=== PATIENT | male | born 1940 | race Asian ===

== ENCOUNTER → 2016-10-26 | Outpatient (CLI) | payer MEDICARE, BC ==
[~2016-10-26] MED LIST: CHOL1CAP14 PO; D-20TAB3 PO; DRIS50002 PO; FLAX10008 PO; ROSU1TAB4 PO; TAMS5CAP PO; ZYRT10TA PO; [UNRECOGNIZED DRUG - CODE] TOPICAL; [UNRECOGNIZED DRUG - OTHER] T-DERMAL; [UNRECOGNIZED DRUG - OTHER] T-DERMAL; [UNRECOGNIZED DRUG - OTHER] TOP
[2016-10-26 10:57] LABS: HEMATOCRIT 43.1 % (39.0-51.0); MEAN CELL VOLUME 87.7 FL (80.0-100.0); MEAN CORPUSCULAR HEMOGLOBIN 29.8 PG (27.0-34.0); PLATELET COUNT 307 TH/MM3 (150-450); RED BLOOD COUNT 4.92 MIL/MM3 (4.50-5.90); RED CELL DISTRIBUTION WIDTH 14.5 % (11.6-17.2); REVIEW FLAG FINAL; WHITE BLOOD COUNT 8.2 TH/MM3 (4.0-11.0)
[2016-10-26 11:03] LABS: INTERNATIONAL NORMALIZED RATIO 0.9 RATIO; PROTHROMBIN TIME - PATIENT 10.4 SEC (9.8-11.6)
[2016-10-26 11:28] LABS: ALKALINE PHOSPHATASE 65 U/L (45-117); ALT (GPT) 19 U/L (12-78); GLUCOSE,FASTING 101 MG/DL (74-99); TOTAL BILIRUBIN ADULT 0.4 MG/DL (0.2-1.0)
[2016-10-26 11:29] LABS: ANION GAP 7 MEQ/L (5-15); AST (GOT) 20 U/L (15-37); BICARBONATE 26.9 MEQ/L (21.0-32.0); BLOOD UREA NITROGEN 11 MG/DL (7-18); CHLORIDE 108 MEQ/L (98-107); GLOMERULAR FILTRATION RATE 88 ML/MIN (>89); POTASSIUM 4.1 MEQ/L (3.5-5.1); SODIUM (NA) 142 MEQ/L (136-145)
[2016-10-29 11:50] LABS: HEP B DNA R2 2.84 (())
== END ==
LOC: CLAB 10:27
PROVIDERS: ATTEND Urology
DX: R97.20 Elevated prostate specific antigen [PSA] (principal); B18.1 Chronic viral hepatitis B without delta-agent
CPT/HCPCS: 36415; 80053; 82105; 84153; 85027; 85610; 87517

== ENCOUNTER → 2017-02-18 | Outpatient (CLI) | payer MEDICARE, BC ==
[~2017-02-18] MED LIST changes: -DRIS50002 PO; +ZOSTINJ SQ; -ZYRT10TA PO; +[UNRECOGNIZED DRUG - CODE] TD
[2017-02-18 12:19] LABS: ANION GAP 6 MEQ/L (5-15); AST (GOT) 21 U/L (15-37); BICARBONATE 26.5 MEQ/L (21.0-32.0); BLOOD UREA NITROGEN 16 MG/DL (7-18); CHLORIDE 106 MEQ/L (98-107); GLOMERULAR FILTRATION RATE 90 ML/MIN (>89); GLUCOSE,FASTING 103 MG/DL (74-99); POTASSIUM 3.8 MEQ/L (3.5-5.1); SODIUM (NA) 138 MEQ/L (136-145)
[2017-02-18 12:20] LABS: ALT (GPT) 28 U/L (12-78)
[2017-02-18 12:22] LABS: ALKALINE PHOSPHATASE 73 U/L (45-117); TOTAL BILIRUBIN ADULT 0.6 MG/DL (0.2-1.0)
[2017-02-21 09:51] LABS: HEP B DNA R2 1.48 (())
== END ==
LOC: CLAB 11:30
PROVIDERS: ATTEND Family Medicine
DX: R76.8 Other specified abnormal immunological findings in serum (principal)
CPT/HCPCS: 36415; 80053; 82105; 87517

== ENCOUNTER → 2017-07-19 | Outpatient (CLI) | payer MEDICARE, BC ==
[~2017-07-19] MED LIST changes: -CHOL1CAP14 PO; +D 50CAP2 PO
[2017-07-19 11:06] LABS: PROTHROMBIN TIME - PATIENT 10.2 SEC (9.8-11.6)
[2017-07-19 11:10] LABS: AUTOMATED NEUTROPHIL # 4.5 TH/MM3 (1.8-7.7); BASOPHIL % 0.4 % (0.0-2.0); EOSINOPHIL # 0.4 TH/MM3 (0-0.4); EOSINOPHIL % 6.5 % (0.0-4.0); HEMO FLAGS DIFF FINAL; LYMPH % 18.6 % (9.0-44.0); LYMPHOCYTE # 1.3 TH/MM3 (1.0-4.8); MEAN CELL VOLUME 87.4 FL (80.0-100.0); MEAN CORPUSCULAR HEMOGLOBIN 29.4 PG (27.0-34.0); MEAN CORPUSCULAR HGB CONC 33.6 % (32.0-36.0); MONO % 8.5 % (0.0-8.0); PLATELET COUNT 268 TH/MM3 (150-450); RED BLOOD COUNT 4.81 MIL/MM3 (4.50-5.90); WHITE BLOOD COUNT 6.9 TH/MM3 (4.0-11.0)
[2017-07-19 11:35] LABS: INDIRECT BILIRUBIN 0.5 MG/DL (0.0-0.8); TOTAL BILIRUBIN ADULT 0.6 MG/DL (0.2-1.0)
== END ==
LOC: CLAB 10:32
DX: B18.1 Chronic viral hepatitis B without delta-agent (principal); R97.20 Elevated prostate specific antigen [PSA]
CPT/HCPCS: 36415; 80076; 82105; 84153; 85025; 85610

== ENCOUNTER → 2017-08-29 | Outpatient (CLI) | payer MEDICARE, BC ==
[2017-08-29 12:32] LABS: HEMATOCRIT 41.7 % (39.0-51.0); HEMOGLOBIN 14.5 GM/DL (13.0-17.0); MEAN CELL VOLUME 87.7 FL (80.0-100.0); MEAN CORPUSCULAR HEMOGLOBIN 30.5 PG (27.0-34.0); MEAN CORPUSCULAR HGB CONC 34.8 % (32.0-36.0); MEAN PLATELET VOLUME 7.6 FL (7.0-11.0); PLATELET COUNT 272 TH/MM3 (150-450); RED BLOOD COUNT 4.75 MIL/MM3 (4.50-5.90); RED CELL DISTRIBUTION WIDTH 14.5 % (11.6-17.2); WHITE BLOOD COUNT 6.9 TH/MM3 (4.0-11.0)
[2017-08-29 13:01] LABS: ALKALINE PHOSPHATASE 69 U/L (45-117); ALT (GPT) 27 U/L (12-78); HDL CHOLESTEROL 48.1 MG/DL (40.0-60.0); TOTAL BILIRUBIN ADULT 0.7 MG/DL (0.2-1.0); TOTAL PROTEIN 7.6 GM/DL (6.4-8.2)
[2017-08-29 13:12] LABS: ALBUMIN 4.1 GM/DL (3.4-5.0); AST (GOT) 27 U/L (15-37); BICARBONATE 26.1 MEQ/L (21.0-32.0); CALCIUM 8.5 MG/DL (8.5-10.1); CHLORIDE 107 MEQ/L (98-107); CHOLESTEROL 164 MG/DL (120-200); CREATININE 0.77 MG/DL (0.60-1.30); GLOMERULAR FILTRATION RATE 98 ML/MIN (>89); GLUCOSE,FASTING 95 MG/DL (74-99); LDL CHOLESTEROL 96 MG/DL (0-99); SODIUM (NA) 140 MEQ/L (136-145); TRIGLYCERIDES 99 MG/DL (42-150)
[2017-08-29 13:13] LABS: BLOOD UREA NITROGEN 12 MG/DL (7-18)
[2017-08-30 06:02] LABS: FREE PSA/PSA RATIO 0.25 ratio; PSA, FREE 1.3 ng/mL
[2017-08-31 23:52] LABS: HEP B DNA R2 2.19 (<1.30)
== END ==
LOC: CLAB 12:06
PROVIDERS: ATTEND Family Medicine
DX: E78.5 Hyperlipidemia, unspecified (principal); B18.1 Chronic viral hepatitis B without delta-agent; B19.10 Unspecified viral hepatitis B without hepatic coma; N40.1 Benign prostatic hyperplasia with lower urinary tract symptoms
CPT/HCPCS: 36415; 80053; 80061; 82105; 84153; 84154; 85027; 87517

== ENCOUNTER → 2017-11-05 | Outpatient (CLI) | payer MEDICARE, BC ==
[~2017-11-05] MED LIST changes: +VARI50KI
[2017-11-05 12:08] LABS: CHOLESTEROL/ HDL RATIO 5.04 RATIO
== END ==
LOC: CLAB 11:28
PROVIDERS: ATTEND Family Medicine
DX: E78.2 Mixed hyperlipidemia (principal)
CPT/HCPCS: 36415; 80061

== ENCOUNTER → 2018-01-21 | Outpatient (CLI) | payer MEDICARE, BC | LOC: CLAB 11:06 | PROVIDERS: ATTEND Urology | DX: N40.1 Benign prostatic hyperplasia with lower urinary tract symptoms (principal) | CPT/HCPCS: 36415; 84153 ==